=== PATIENT | female | born 1970 | race Caucasian/White ===

== ENCOUNTER 2024-02-18 10:45 | Emergency (ER) | payer MEDICAID ==
[~2024-02-18] VITALS: Ht 149.9 cm; Wt 68.0 kg
[2024-02-18] MEDS: KETOROLAC 15MG/ML VIAL IM ONE (11:30)
[2024-02-18] MEDS: SODIUM CHLORIDE 0.9% 1,000 ML IV ONE (12:00)
[2024-02-18] MEDS: ONDANSETRON HCL 4MG/2ML INJ IV ONE (12:58)
[2024-02-18] MEDS: ONDANSETRON HCL 4MG/2ML INJ IV STA (12:59)
[2024-02-18] MEDS: MORPHINE SULFATE 4 MG/ML INJ (FOR IV/IM USE) IV STA (12:59)
[2024-02-18] MEDS: PROPOFOL 200MG/20ML VIAL IV ONE (13:16)
[2024-02-18 13:19] VITALS: O2SAT 94
[2024-02-18] MEDS ORDERED: IBUP-2028 MT (14:11)
[2024-02-18 14:30] VITALS: BP 154/69; PULSE 88; RESP 16; TEMP 98.7
== END 2024-02-18 14:40 | disposition home or self-care (01) ==
LOC: ER 11:00
DX: S43.004A Unspecified dislocation of right shoulder joint, initial encounter (principal); F17.200 Nicotine dependence, unspecified, uncomplicated; W01.0XXA Fall on same level from slipping, tripping and stumbling without subsequent striking against object, initial encounter; Y93.89 Activity, other specified; Y92.89 Other specified places as the place of occurrence of the external cause; Y99.8 Other external cause status; I49.9 Cardiac arrhythmia, unspecified
CPT/HCPCS: 73030; 93005; 23650; 96361; 96372; 96374; 96375; 99152; 99285; J1885; J2405; J2704; J2270; J7030; Z7610 ×5